=== PATIENT | female | born 1985 | race Native Hawaiian/Other Pacific Islander ===

== ENCOUNTER 2017-01-03 19:32 | Emergency (ER) | payer OTHER ==
--- NOTE | 2017-01-03 20:37 | ED ORDER SUMMARY ---
..... Patient: SRINI SANCHEZ OrderSheet [facility] VisitID: [id number] [address] [place] [address] 31y, F Registration Date/Time: 01/03/2017 ORDER SHEET Weight: 84.3 kg (stated) Allergies: No Known Drug Allergy GENERAL ORDERS: UA-Culture if indicated Urgent (19:57 01/03/2017 Abel R.N. per protocol) (19:58 Abel R.N.) Heart Tones (20:04 01/03/2017 HBivens A.R.N.P.) (20:21 CBheather R.N.) MEDICATION ORDERS: IV FLUIDS: ORDER SHEET NOTES: [Electronically signed by Alma Rosa Singleton R.N. (20:49 01/03/2017)] [Electronically signed by Marycarmen Villa.R.N.P. (22:25 01/03/2017)] [Electronically locked/signed by Alma Rosa Singleton R.N. (20:49 01/03/2017)]
--- NOTE | 2017-01-03 20:37 | ED NURSING NOTES ---
Clinical Report - Nurses [facility] [address] [place] [address] 01/03/2017 19:38 Patient: SRINI SANCHEZ TRIAGE Triage time 19:41. Acuity: LEVEL 4. Chief Complaint: PAINFUL URINATION and FREQUENCY. --19:55 Alma Rosa Singleton R.N. 19:47 01/03/17. BP: 117/69 taken on the left arm, while lying. HR: 85 (regular and normal rate). RR: 18. O2 saturation: 100%. Temp: 99 F (oral). Pain level now: 02/28. --19:55 Alma Rosa Singleton R.N. Weight: 84.3 kg stated. Height/Length: 64 inches Per Patient. BMI: 31.9. --19:48 Alma Rosa Singleton R.N. Medications None. --19:49 Alma Rosa Singleton R.N. Allergies No Known Drug Allergy. --19:49 Alma Rosa Singleton R.N. History Arrived by private vehicle. Historian: patient. Accompanied by friend. Primary physician (unknown). Onset was gradual. Symptoms still present (about 1 weeks). ( pt here with painful urination and hematuria, pt reports at a due date of February 10. Denies problems with ). She has had mild hematuria (today). PAST MEDICAL HX: Last normal menstrual period- Apr 2016. 5. Para 4. Currently . Near term. 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 G 5. P 4. SOCIAL HX: Never smoker. No alcohol use or drug use. ABUSE ASSESSMENT: No report of abuse. SELF HARM ASSESSMENT: A self harm assessment was performed. The patient answered "no" to the question "Have you recently felt down, depressed, or hopeless?", "Have you noticed less interest or pleasure in doing things?", "Do you have thoughts of harming or killing yourself?", "Are you here because you tried to hurt yourself?", "Have you ever tried to hurt yourself before today?", "Have you recently had thoughts about harming or killing others?" and "Do you have any dangerous items in your possession?". FALL RISK ASSESSMENT: Fall risk assessment completed. No fall risk identified. NUTRITIONAL RISK ASSESSMENT: The nutritional risk assessment revealed no deficiencies. FUNCTIONAL ASSESSMENT: Functional assessment: no impairments noted. LEARNING NEEDS ASSESSMENT: The learning needs assessment revealed no barriers. SKIN INTEGRITY ASSESSMENT: Skin integrity risk assessment completed. No skin integrity risk identified. --19:55 Alma Rosa Singleton R.N. PROBLEMS: no known problems. ADDITIONAL SURGERIES: no known surgeries. Interventions ID band on patient. --19:55 Alma Rosa Singleton R.N. PHYSICAL ASSESSMENT Ambulatory to room. GENERAL / NEURO / PSYCH: Alert. Oriented X 4. Appears in no acute distress. HEENT: Mucous membranes are pink. RESPIRATORY: Respirations not labored. CVS: Normal heart rate and rhythm. GI / : Bowel sounds within normal limits. SKIN: Skin is warm and dry. --19:56 Alma Rosa Singleton R.N. NURSING PROGRESS NOTES Patient gowned. Two patient identifiers checked. Call light placed in reach. Side rails up x 1. Bed placed in lowest position. Brakes of bed on. --19:56 Alma Rosa Singleton R.N. Patient ready for evaluation- chart flagged. --19:56 Alma Rosa Singleton R.N. ( heart tone 148 RLQ). --20:28 Alma Rosa Singleton R.N. Two patient identifiers checked. Call light placed in reach. Side rails up x 1. Bed placed in lowest position. Brakes of bed on. --20:29 Alma Rosa Singleton R.N. DISPOSITION / DISCHARGE Condition at departure: improved and stable. No learning barriers present. Discharge instructions provided and reviewed with the patient. Reviewed medication(s) side effects, precautions, dosing and course information. Prescription(s) given to the patient. The patient has no activity restrictions. Patient verbalized understanding. Written instructions provided in Vietnamese. The patient was discharged home and unaccompanied at time of discharge. She left the Emergency Department ambulatory and via private vehicle. Family member driving. --20:49 Alma Rosa Singleton R.N. 20:43 01/03/17. BP: 113/69 taken on the left arm, while lying. HR: 80 (regular and normal rate). RR: 18. O2 saturation: 99% on room air. Temp: deferred. Pain level now: 0/10. --20:49 Alma Rosa Singleton R.N. Departure time: 2042. --20:49 Alma Rosa Singleton R.N. Locked/Released at 01/03/2017 20:49 by Alma Rosa Singleton R.N.
--- NOTE | 2017-01-03 20:37 | ED CLINICAL REPORT ---
Clinical Report - Physicians/Mid Levels [facility] [address] [place] [address] 01/03/2017 19:38 Patient: SRINI SANCHEZ Time Seen: 19:56; initial patient contact, initial documentation, patient care assumed. Arrived- By private vehicle. Historian- patient. HISTORY OF PRESENT ILLNESS Chief Complaint: DYSURIA. This started about 1 weeks ago and still present and worsening. (today with blood in it). The symptoms are described as moderate. Modifying factors- worsened by urination. Not relieved by anything. No abdominal pain, pelvic pain, vaginal pain, low back pain or abnormal bleeding. No vaginal discharge. She has had pain with urination and urgency of urination. The patient has had urinary frequency and hematuria. Sexually active- unprotected sex and heterosexual. No exposure to sexually transmitted disease. Does not use control measures. Currently . Near term. Has had care in clinic. G 5. P 4. Receiving care. Similar symptoms previously: Occasionally, as bad. Recent medical care: Not recently seen/assessed. REVIEW OF SYSTEMS No nausea, vomiting, diarrhea, fever or difficulty breathing. No chest pain. All systems otherwise negative, except as recorded above. PAST HISTORY Negative. SOCIAL HISTORY Never smoker. No alcohol use or drug use. No recent travel. Is a local resident. FAMILY HISTORY Negative. ADDITIONAL NOTES The nursing notes have been reviewed with agreement regarding the chief complaint, HPI, ROS, PMH and patient medications and allergies. PHYSICAL EXAM Vital Signs: 01/03/2017 19:47 BP: 117/69. HR: 85. RR: 18. O2 saturation: 100%. Temp: 99 F. Pain level now: 7/10. Have been reviewed as normal and appear to be correct. Appearance: Alert. Oriented X3. No acute distress. HEENT: Normal external inspection. ENT: Pharynx normal. Neck: Neck supple. CVS: Heart sounds normal. Respiratory: No respiratory distress. Breath sounds normal. Chest nontender. Abdomen: Soft and nontender. Nontender gravid uterus palpable to xiphoid (( heart tone 148 RLQ). --20:28 Alma Rosa Singleton R.N.). Size consistent with dates. Normal heart tones. Bowel sounds normal. No organomegaly. No mass. Back: Normal external inspection. Skin: Skin warm and dry. Normal skin color. No rash. Normal skin turgor. Extremities: Extremities nontender. No lower extremity edema. Neuro: Oriented X 3. Mood/affect normal. No motor deficit. No sensory deficit. LABS, X-RAYS, AND EKG Laboratory Tests: UA-Culture if indicated: (MARCELLE: 01/03/2017 19:45) ( MsgRcvd 01/03/2017 20:30) Final results Test Result Flag Units (Reference) URINE COLOR YELLOW URINE APPEARANCE SL CLOUDY URINE GLUCOSE NEGATIVE (NEGATIVE) URINE BILIRUBIN ICTOTEST NEGATIVE (NEGATIVE) URINE KETONE NEGATIVE (NEGATIVE) URINE SPECIFIC GRAVITY >= 1.030 (1.010-1.030) URINE PH 6.0 (5.0-8.0) URINE PROTEIN 1+ (NEGATIVE) URINE UROBILINOGEN 2.0 EU/dL (0.2-1.0) The urobilinogen reagent area may react with interferingsubstances known to react with Shamar's reagent such asp-aminosalicylic acid and sulfonamides. Atypical colorreactions may be obtained in the presence of highconcentrations of p-aminobenzoic acid. The absence ofurobilinogen cannot be determined with this test. URINE NITRITE NEGATIVE (NEGATIVE) URINE BLOOD 3+ (NEGATIVE) URINE LEUK ESTERASE POSITIVE (NEGATIVE) URINE RBC 1-3 rbc/hpf (0-1) URINE WBC 25-50 wbc/hpf (0-1) URINE EPITHELIAL CELLS 3-5 EPI/hpf (0-5) URINE BACTERIA MODERATE (2+ TO 3+) (NONE SEEN) URINE COMMENT CULTURE INDICATED 1+ YEASTW.B.C. CLUMPS PRESENTURINE CULTURES ARE SET-UP BASED ON THE FOLLOWING CRITERIA:POSITIVE NITRITEPOSITIVE LEUKOCYTE ESTERASEGREATER THAN 10 WHITE BLOOD CELLSMODERATE (2+) OR GREATER BACTERIA . PROGRESS AND PROCEDURES Patient counseled in person regarding the patient's stable condition, test results and diagnosis. 20:37. Differential Diagnosis: Other possible considerations: uti, pyelo, early labor, kidney stone, urosepsis, vaginitis. Above considerations are based on history, physical exam, reassessment and laboratory data. Differential diagnosis was discussed with patient. Disposition: Discharged home in good and unchanged condition (20:37). Condition: good and stable. CLINICAL IMPRESSION Acute urinary tract infection with cystitis and hematuria. No pyelonephritis. Not associated with indwelling catheter or obstruction. INSTRUCTIONS Warnings: GENERAL WARNINGS: Return or contact your physician immediately if your condition worsens or changes unexpectedly, if not improving as expected, or if other problems arise. Specifically return if problem worsens. Prescription Medications: Macrobid 100 mg: Take 1 capsule orally every 12 hours for 7 days. No refills. Substitution is permissible. Follow-up: Follow up with your doctor in about three days even if well. Call for an appointment. Summary of care provided to patient. Understanding of the discharge instructions verbalized by patient. (Electronically signed by Marycarmen Villa A.R.N.P. 01/03/2017 22:25)
--- NOTE | 2017-01-03 20:37 | ED NURSING NOTES ---
Clinical Report - Nurses [facility] [address] [place] [address] 01/03/2017 19:38 Patient: SRINI SANCHEZ TRIAGE Triage time 19:41. Acuity: LEVEL 4. Chief Complaint: PAINFUL URINATION and FREQUENCY. --19:55 Alma Rosa Singleton R.N. 19:47 01/03/17. BP: 117/69 taken on the left arm, while lying. HR: 85 (regular and normal rate). RR: 18. O2 saturation: 100%. Temp: 99 F (oral). Pain level now: 02/28. --19:55 Alma Rosa Singleton R.N. Weight: 84.3 kg stated. Height/Length: 64 inches Per Patient. BMI: 31.9. --19:48 Alma Rosa Singleton R.N. Medications None. --19:49 Alma Rosa Singleton R.N. Allergies No Known Drug Allergy. --19:49 Alma Rosa Singleton R.N. History Arrived by private vehicle. Historian: patient. Accompanied by friend. Primary physician (unknown). Onset was gradual. Symptoms still present (about 1 weeks). ( pt here with painful urination and hematuria, pt reports at a due date of February 10. Denies problems with ). She has had mild hematuria (today). PAST MEDICAL HX: Last normal menstrual period- Apr 2016. 5. Para 4. Currently . Near term. 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 G 5. P 4. SOCIAL HX: Never smoker. No alcohol use or drug use. ABUSE ASSESSMENT: No report of abuse. SELF HARM ASSESSMENT: A self harm assessment was performed. The patient answered "no" to the question "Have you recently felt down, depressed, or hopeless?", "Have you noticed less interest or pleasure in doing things?", "Do you have thoughts of harming or killing yourself?", "Are you here because you tried to hurt yourself?", "Have you ever tried to hurt yourself before today?", "Have you recently had thoughts about harming or killing others?" and "Do you have any dangerous items in your possession?". FALL RISK ASSESSMENT: Fall risk assessment completed. No fall risk identified. NUTRITIONAL RISK ASSESSMENT: The nutritional risk assessment revealed no deficiencies. FUNCTIONAL ASSESSMENT: Functional assessment: no impairments noted. LEARNING NEEDS ASSESSMENT: The learning needs assessment revealed no barriers. SKIN INTEGRITY ASSESSMENT: Skin integrity risk assessment completed. No skin integrity risk identified. --19:55 Alma Rosa Singleton R.N. PROBLEMS: no known problems. ADDITIONAL SURGERIES: no known surgeries. Interventions ID band on patient. --19:55 Alma Rosa Singleton R.N. PHYSICAL ASSESSMENT Ambulatory to room. GENERAL / NEURO / PSYCH: Alert. Oriented X 4. Appears in no acute distress. HEENT: Mucous membranes are pink. RESPIRATORY: Respirations not labored. CVS: Normal heart rate and rhythm. GI / : Bowel sounds within normal limits. SKIN: Skin is warm and dry. --19:56 Alma Rosa Singleton R.N. NURSING PROGRESS NOTES Patient gowned. Two patient identifiers checked. Call light placed in reach. Side rails up x 1. Bed placed in lowest position. Brakes of bed on. --19:56 Alma Rosa Singleton R.N. Patient ready for evaluation- chart flagged. --19:56 Alma Rosa Singleton R.N. ( heart tone 148 RLQ). --20:28 Alma Rosa Singleton R.N. Two patient identifiers checked. Call light placed in reach. Side rails up x 1. Bed placed in lowest position. Brakes of bed on. --20:29 Alma Rosa Singleton R.N. DISPOSITION / DISCHARGE Condition at departure: improved and stable. No learning barriers present. Discharge instructions provided and reviewed with the patient. Reviewed medication(s) side effects, precautions, dosing and course information. Prescription(s) given to the patient. The patient has no activity restrictions. Patient verbalized understanding. Written instructions provided in Georgian. The patient was discharged home and unaccompanied at time of discharge. She left the Emergency Department ambulatory and via private vehicle. Family member driving. --20:49 Alma Rosa Singleton R.N. 20:43 01/03/17. BP: 113/69 taken on the left arm, while lying. HR: 80 (regular and normal rate). RR: 18. O2 saturation: 99% on room air. Temp: deferred. Pain level now: 0/10. --20:49 Alma Rosa Singleton R.N. Departure time: 2042. --20:49 Alma Rosa Singleton R.N. Locked/Released at 01/03/2017 20:49 by Alma Rosa Singleton R.N.
--- NOTE | 2017-01-03 20:37 | ED ORDER SUMMARY ---
..... Patient: SRINI SANCHEZ OrderSheet [facility] VisitID: [id number] [address] [place] [address] 31y, F Registration Date/Time: 01/03/2017 ORDER SHEET Weight: 84.3 kg (stated) Allergies: No Known Drug Allergy GENERAL ORDERS: UA-Culture if indicated Urgent (19:57 01/03/2017 Abel R.N. per protocol) (19:58 Abel R.N.) Heart Tones (20:04 01/03/2017 HBivens A.R.N.P.) (20:21 CBheather R.N.) MEDICATION ORDERS: IV FLUIDS: ORDER SHEET NOTES: [Electronically signed by Alma Rosa Singleton R.N. (20:49 01/03/2017)] [Electronically signed by Marycarmen Villa.R.N.P. (22:25 01/03/2017)] [Electronically locked/signed by Alma Rosa Singleton R.N. (20:49 01/03/2017)]
--- NOTE | 2017-01-03 22:26 | ED DISCHARGE INSTRUCTIONS ---
Patient: SRINI SANCHEZ General Instructions [facility] VisitID: [id number] [place] [address] 31y, F Registration Date/Time: 01/03/2017 Acute urinary tract infection with cystitis and hematuria. No pyelonephritis. Not associated with indwelling catheter or obstruction. INSTRUCTIONS Warnings: GENERAL WARNINGS: Return or contact your physician immediately if your condition worsens or changes unexpectedly, if not improving as expected, or if other problems arise. Specifically return if problem worsens. Prescription Medications: Macrobid 100 mg: Take 1 capsule orally every 12 hours for 7 days. No refills. Substitution is permissible. Follow-up: Follow up with your doctor in about three days even if well. Call for an appointment. Summary of care provided to patient. Understanding of the discharge instructions verbalized by patient. ADDITIONAL INFORMATION Bladder Infection,Female (Adult) A bladder infection ("cystitis" or "UTI") usually causes a constant urge to urinate and a burning when passing urine. Urine may be cloudy, smelly or dark. There may be pain in the lower abdomen. A bladder infection occurs when bacteria from the vaginal area enter the bladder opening (urethra). This can occur from sexual intercourse, wearing tight clothing, dehydration and other factors. Home Care: Drink lots of fluids (at least 6-8 glasses a day, unless you must restrict fluids for other medical reasons). This will force the medicine into your urinary system and flush the bacteria out of your body. Avoid sexual intercourse until your symptoms are gone. Avoid caffeine, alcohol and spicy foods. These can irritate the bladder. A bladder infection is treated with antibiotics. You may also be given Pyridium (generic = phenazopyridine) to reduce the burning sensation. This medicine will cause your urine to become a bright orange color. The orange urine may stain clothing. You may wear a pad or panty-liner to protect clothing. Preventing Future Infections: Always wipe from front to back after a bowel movement. Keep the genital area clean and dry. Drink plenty of fluids each day to avoid dehydration. Both sexual partners should wash before intercourse. Urinate right after intercourse to flush out the bladder. Wear cotton underwear and cotton-lined panty hose; avoid tight-fitting pants. If you are on control pills and are having frequent bladder infections, discuss with your doctor. Follow Up: Return to this facility or see your doctor if ALL symptoms are not gone after three days of treatment. Get Prompt Medical Attention if any of the following occur: Fever of 100.4F (38C) or higher, or as directed by your healthcare provider No improvement by the third day of treatment Increasing back or abdominal pain Repeated vomiting; unable to keep medicine down Weakness, dizziness or fainting Vaginal discharge Pain, redness or swelling in the labia (outer vaginal area) Nitrofurantoin, Nitrofurantoin, Macrocrystalline Oral capsule What is this medicine? NITROFURANTOIN (chiara tronacho fyoor AN toyn) is an antibiotic. It is used to treat urinary tract infections. How should I use this medicine? Take this medicine by mouth with a glass of water. Follow the directions on the prescription label. Take this medicine with food or milk. Take your doses at regular intervals. Do not take your medicine more often than directed. Do not stop taking except on your doctor's advice. Talk to your in file operator regarding the use of this medicine in children. While this drug may be prescribed for selected conditions, precautions do apply. What side effects may I notice from receiving this medicine? Side effects that you should report to your doctor or health home health care respiratory therapist as soon as possible: allergic reactions like skin rash or hives, swelling of the face, lips, or tongue chest pain cough difficulty breathing dizziness, drowsiness fever or infection joint aches or pains pale or blue-tinted skin redness, blistering, peeling or loosening of the skin, including inside the mouth tingling, burning, pain, or numbness in hands or feet unusual bleeding or bruising unusually weak or tired yellowing of eyes or skin Side effects that usually do not require medical attention (report to your doctor or health home health care respiratory therapist if they continue or are bothersome): dark urine diarrhea headache loss of appetite nausea or vomiting temporary hair loss What may interact with this medicine? antacids containing magnesium trisilicate probenecid quinolone antibiotics like ciprofloxacin, lomefloxacin, norfloxacin and ofloxacin sulfinpyrazone What if I miss a dose? If you miss a dose, take it as soon as you can. If it is almost time for your next dose, take only that dose. Do not take double or extra doses. Where should I keep my medicine? Keep out of the reach of children. Store at room temperature between 15 and 30 degrees C (59 and 86 degrees F). Protect from light. Throw away any unused medicine after the expiration date. What should I tell my health care provider before I take this medicine? They need to know if you have any of these conditions: anemia diabetes [id number] dehydrogenase deficiency kidney disease liver disease lung disease other chronic illness an unusual or allergic reaction to nitrofurantoin, other antibiotics, other medicines, foods, dyes or preservatives or trying to get breast-feeding What should I watch for while using this medicine? Tell your doctor or health home health care respiratory therapist if your symptoms do not improve or if you get new symptoms. Drink several glasses of water a day. If you are taking this medicine for a long time, visit your doctor for regular checks on your progress. If you are diabetic, you may get a false positive result for sugar in your urine with certain brands of urine tests. Check with your doctor. You have been given the following additional information: Bladder Infection, Female (Adult) Nitrofurantoin, Nitrofurantoin, Macrocrystalline Oral capsule (Electronically signed by Marycarmen Villa A.R.N.P. 01/03/2017 22:25)
--- NOTE | 2017-01-03 22:26 | ED MAR SUMMARY ---
..... Medication Administration Record [facility] [address] [place], [place] [id number] Patient: SRINI SANCHEZ Visit ID: [id number] 31y, F Weight: 84.3 kg Height/Length: 64 in BMI: 31.9 ALLERGIES: No Known Drug Allergy
--- NOTE | 2017-01-03 22:26 | ED DISCHARGE INSTRUCTIONS ---
Patient: SRINI SANCHEZ General Instructions [facility] VisitID: [id number] [place] [address] 31y, F Registration Date/Time: 01/03/2017 Acute urinary tract infection with cystitis and hematuria. No pyelonephritis. Not associated with indwelling catheter or obstruction. INSTRUCTIONS Warnings: GENERAL WARNINGS: Return or contact your physician immediately if your condition worsens or changes unexpectedly, if not improving as expected, or if other problems arise. Specifically return if problem worsens. Prescription Medications: Macrobid 100 mg: Take 1 capsule orally every 12 hours for 7 days. No refills. Substitution is permissible. Follow-up: Follow up with your doctor in about three days even if well. Call for an appointment. Summary of care provided to patient. Understanding of the discharge instructions verbalized by patient. ADDITIONAL INFORMATION Bladder Infection,Female (Adult) A bladder infection ("cystitis" or "UTI") usually causes a constant urge to urinate and a burning when passing urine. Urine may be cloudy, smelly or dark. There may be pain in the lower abdomen. A bladder infection occurs when bacteria from the vaginal area enter the bladder opening (urethra). This can occur from sexual intercourse, wearing tight clothing, dehydration and other factors. Home Care: Drink lots of fluids (at least 6-8 glasses a day, unless you must restrict fluids for other medical reasons). This will force the medicine into your urinary system and flush the bacteria out of your body. Avoid sexual intercourse until your symptoms are gone. Avoid caffeine, alcohol and spicy foods. These can irritate the bladder. A bladder infection is treated with antibiotics. You may also be given Pyridium (generic = phenazopyridine) to reduce the burning sensation. This medicine will cause your urine to become a bright orange color. The orange urine may stain clothing. You may wear a pad or panty-liner to protect clothing. Preventing Future Infections: Always wipe from front to back after a bowel movement. Keep the genital area clean and dry. Drink plenty of fluids each day to avoid dehydration. Both sexual partners should wash before intercourse. Urinate right after intercourse to flush out the bladder. Wear cotton underwear and cotton-lined panty hose; avoid tight-fitting pants. If you are on control pills and are having frequent bladder infections, discuss with your doctor. Follow Up: Return to this facility or see your doctor if ALL symptoms are not gone after three days of treatment. Get Prompt Medical Attention if any of the following occur: Fever of 100.4F (38C) or higher, or as directed by your healthcare provider No improvement by the third day of treatment Increasing back or abdominal pain Repeated vomiting; unable to keep medicine down Weakness, dizziness or fainting Vaginal discharge Pain, redness or swelling in the labia (outer vaginal area) Nitrofurantoin, Nitrofurantoin, Macrocrystalline Oral capsule What is this medicine? NITROFURANTOIN (chiara tronacho fyoor AN toyn) is an antibiotic. It is used to treat urinary tract infections. How should I use this medicine? Take this medicine by mouth with a glass of water. Follow the directions on the prescription label. Take this medicine with food or milk. Take your doses at regular intervals. Do not take your medicine more often than directed. Do not stop taking except on your doctor's advice. Talk to your feller machine operator regarding the use of this medicine in children. While this drug may be prescribed for selected conditions, precautions do apply. What side effects may I notice from receiving this medicine? Side effects that you should report to your doctor or health care mgr as soon as possible: allergic reactions like skin rash or hives, swelling of the face, lips, or tongue chest pain cough difficulty breathing dizziness, drowsiness fever or infection joint aches or pains pale or blue-tinted skin redness, blistering, peeling or loosening of the skin, including inside the mouth tingling, burning, pain, or numbness in hands or feet unusual bleeding or bruising unusually weak or tired yellowing of eyes or skin Side effects that usually do not require medical attention (report to your doctor or health care mgr if they continue or are bothersome): dark urine diarrhea headache loss of appetite nausea or vomiting temporary hair loss What may interact with this medicine? antacids containing magnesium trisilicate probenecid quinolone antibiotics like ciprofloxacin, lomefloxacin, norfloxacin and ofloxacin sulfinpyrazone What if I miss a dose? If you miss a dose, take it as soon as you can. If it is almost time for your next dose, take only that dose. Do not take double or extra doses. Where should I keep my medicine? Keep out of the reach of children. Store at room temperature between 15 and 30 degrees C (59 and 86 degrees F). Protect from light. Throw away any unused medicine after the expiration date. What should I tell my health care provider before I take this medicine? They need to know if you have any of these conditions: anemia diabetes onzktdu-4-kakwuwyls dehydrogenase deficiency kidney disease liver disease lung disease other chronic illness an unusual or allergic reaction to nitrofurantoin, other antibiotics, other medicines, foods, dyes or preservatives or trying to get breast-feeding What should I watch for while using this medicine? Tell your doctor or health care mgr if your symptoms do not improve or if you get new symptoms. Drink several glasses of water a day. If you are taking this medicine for a long time, visit your doctor for regular checks on your progress. If you are diabetic, you may get a false positive result for sugar in your urine with certain brands of urine tests. Check with your doctor. You have been given the following additional information: Bladder Infection, Female (Adult) Nitrofurantoin, Nitrofurantoin, Macrocrystalline Oral capsule (Electronically signed by Marycarmen Villa A.R.N.P. 01/03/2017 22:25)
--- NOTE | 2017-01-03 22:26 | ED MAR SUMMARY ---
..... Medication Administration Record [facility] [address] [place], [place] [id number] Patient: SRINI SANCHEZ Visit ID: [id number] 31y, F Weight: 84.3 kg Height/Length: 64 in BMI: 31.9 ALLERGIES: No Known Drug Allergy
--- NOTE | 2017-01-03 22:26 | ED MED RECONCILIATION SUMMARY ---
Patient: SRINI SANCHEZ Medication Reconciliation Report [facility] VisitID: [id number] [place] [address] 31y, F Registration Date/Time: 01/03/2017 Weight: 84.3 kg Height/Length: 64 in. BMI: 31.9 ALLERGIES: No Known Drug Allergy The patient's Home Medications are listed below: NONE. The source(s) of the original Home Medication information: Not obtained. The following Medications were given to the patient in the Emergency Department: None. The following Medications were prescribed to the patient: Macrobid 100 mg: Take 1 capsule orally every 12 hours for 7 days. No refills. Substitution is permissible. -- Marycarmen Villa A.R.N.P.
--- NOTE | 2017-01-03 22:26 | ED MED RECONCILIATION SUMMARY ---
Patient: SRINI SANCHEZ Medication Reconciliation Report [facility] VisitID: [id number] [place] [address] 31y, F Registration Date/Time: 01/03/2017 Weight: 84.3 kg Height/Length: 64 in. BMI: 31.9 ALLERGIES: No Known Drug Allergy The patient's Home Medications are listed below: NONE. The source(s) of the original Home Medication information: Not obtained. The following Medications were given to the patient in the Emergency Department: None. The following Medications were prescribed to the patient: Macrobid 100 mg: Take 1 capsule orally every 12 hours for 7 days. No refills. Substitution is permissible. -- Marycarmen Villa A.R.N.P.
== END 2017-01-03 20:43 | disposition home or self-care (01) ==
LOC: ED SRH 19:32
DX: O23.10 Infections of bladder in pregnancy, unspecified trimester (principal); N30.01 Acute cystitis with hematuria; Z3A.00 Weeks of gestation of pregnancy not specified
CPT/HCPCS: 90004; 90469